=== PATIENT | male | born 1950 | race Caucasian/White ===

== ENCOUNTER 2023-05-04 16:46 | Emergency (ER) | payer OTHER, SELFPAY ==
--- NOTE | ~2023-05-04 | XR_ITS ---
EXAM: XR shoulder LT min 2V DATE: 05/04/2023 18:00 HISTORY: pain posteriorly/ decreased ROM after a fall last night . COMPARISON: None available. FINDINGS: Normal mineralization. No fracture or dislocation. No lytic or blastic lesion. Moderate po lyarticular osteoarthritic arthritis. No erosion or periosteal change. Soft tissues within normal gamble its. IMPRESSION: No acute osseous finding in the left shoulder. Reviewed, dictated and finalized at location K.
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
[2023-05-04 16:46] VITALS: BP 169/95; PULSE 83; RESP 18; TEMP 36.8; O2SAT 97
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
[2023-05-04] MEDS: CYCLOBENZAPRINE HCL 10 MG TABLET PO (17:07)
[2023-05-04] MEDS: HYDROcodone/acetaminophen (*CRX) 5-325 MG TABLET 1 TAB PO (17:07)
[2023-05-04 17:36] VITALS: BP 140/90; PULSE 88; RESP 18; O2SAT 98
[2023-05-04 18:38] VITALS: BP 137/90; PULSE 77; RESP 17; TEMP 36.6; O2SAT 97
== END 2023-05-04 18:39 | disposition home or self-care (01) ==
PROVIDERS: Emergency Provider Family Medicine
DX: S46.002A Unspecified injury of muscle(s) and tendon(s) of the rotator cuff of left shoulder, initial encounter (principal); M48.061 Spinal stenosis, lumbar region without neurogenic claudication; E78.5 Hyperlipidemia, unspecified; F03.90 Unspecified dementia, unspecified severity, without behavioral disturbance, psychotic disturbance, mood disturbance, and anxiety; W07.XXXA Fall from chair, initial encounter
CPT/HCPCS: 72131; 73030; 99284; A9270

== ENCOUNTER 2023-06-02 14:31 | Outpatient (CLI) | payer SELFPAY ==
[2023-06-02 14:51] LABS: Basophils Absolute Auto 0.04 K/mm3 (0.00-0.10); Basophils Percent Auto 0.5 % (0.0-1.0); Eosinophils Absolute Auto 0.17 K/mm3 (0.02-0.50); Eosinophils Percent Auto 2.2 % (1.0-6.0); Hematocrit 44.9 % (37.0-46.0); Hemoglobin 14.3 g/dL (12.4-15.3); Immature Granulocyte Absolute 0.02 K/mm3 (0.00-0.00); Immature Granulocyte Percent A 0.3 % (0.0-0.0); Lymphocytes Absolute Auto 2.29 K/mm3 (1.10-4.50); Lymphocytes Percent Auto 29.6 % (18.0-42.0); Mean Corpuscular HGB Conc 31.8 g/dL (32.0-36.0); Mean Corpuscular Hemoglobin 29.5 pg (27.0-31.0); Mean Corpuscular Volume 92.6 fL (78.0-102.0); Mean Platelet Volume 9.7 fl (8.7-11.0); Monocytes Absolute Auto 0.46 K/mm3 (0.10-0.90); Neutrophils Absolute Auto 4.8 K/mm3 (1.7-7.2); Neutrophils Percent Auto 61.4 % (50.0-70.0); Platelet Count Result 248 K/mm3 (150-420); Red Blood Count 4.85 M/mm3 (4.70-6.10); Red Cell Distribution Width 13.8 % (11.6-14.4); White Blood Count 7.7 K/mm3 (4.8-10.8)
[2023-06-02 15:37] LABS: Alanine Aminotransferase 42 U/L (16-63); Albumin Level 3.2 g/dL (3.4-5.0); Alkaline Phosphatase 80 U/L (46-116); Anion Gap 7 mmol/L (8-16); Aspartate Amino Transferase 21 U/L (15-37); Bilirubin,Total 0.5 mg/dL (0.00-1.00); Blood Urea Nitrogen 15 mg/dL (7-18); Calcium 8.7 mg/dL (8.5-10.1); Carbon Dioxide 31 mmol/L (21-32); Chloride 105 mmol/L (98-108); Cholesterol 190 mg/dL (0-200); Estimated Glomerular Filt Rate > 60; Glucose 122 mg/dL (70-99); HDL Direct 39 mg/dL (40-60); LDL Cholesterol Calculated 77 mg/dL (<130); Osmolality Calculated 297 mOsm/kg (285-295); Potassium 4.1 mmol/L (3.5-5.1); Prostate Specific Antigen 0.4 ng/mL (< OR = 4.0); Sodium 143 mmol/L (136-145); Total Protein 7.4 g/dL (6.4-8.2); Triglycerides 372 mg/dL (0-150)
== END 2023-06-02 14:32 | disposition home or self-care (01) ==
LOC: CHSLAB 14:33
PROVIDERS: PCP Family Medicine; Visit Provider Family Medicine
DX: Z00.00 Encounter for general adult medical examination without abnormal findings (principal); R35.1 Nocturia; N40.0 Benign prostatic hyperplasia without lower urinary tract symptoms
CPT/HCPCS: 36415; 80053; 80061; 84153; 85025; G0103

== ENCOUNTER 2025-04-25 16:58 | Emergency (ER) | payer OTHER, SELFPAY ==
--- NOTE | ~2025-04-25 | XR_ITS ---
EXAMINATION: XR ankle RT min 3V, 04/25/2025 17:45 CDT HISTORY: fall COMPARISON: No comparisons available. Findings: Fixation of the distal fibula, the hardware is intact, no acute fracture. No significant degenerative changes. Soft tissues unremarkable. Impression: No acute fracture or malalignment. Reviewed, dictated and finalized at location P. Impression: No acute fracture or malalignment.
--- NOTE | ~2025-04-25 | XR_ITS ---
XR foot RT 2V INDICATION: fall . COMPARISON: None. FINDINGS: Frontal, lateral and oblique views of the right foot were obtained. There is no acute fracture or dislocation. IMPRESSION: Radiographic examination of the right foot demonstrates no acute fracture or dislocation. Reviewed, dictated and finalized at location S. IMPRESSION: Radiographic examination of the right foot demonstrates no acute fracture or di slocation.
--- NOTE | ~2025-04-25 | XR_ITS ---
EXAMINATION: XR tibia fibula RT 2V, 04/25/2025 17:45 CDT HISTORY: fall COMPARISON: No comparisons available. Findings: Postsurgical changes with fixation of the distal fibula, no fracture is identified. There is fixation of the visualized distal femur. No significant degenerative changes. Soft tissues unremarkable. Impression: No acute fracture or malalignment. Reviewed, dictated and finalized at location P. Impression: No acute fracture or malalignment.
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
--- OUTSIDE RECORDS SUMMARY | 2025-04-25 17:00 | XMS_ITS | Clinical Summary ---
Author Organization [facility] Address [address] [place] [address] Care Team Providers Care Rail Layer Name Role Phone None, Provider MD Primary Care Provider Unavaila ble Allergies Active Allergy Reactions Criticality Noted Date Comments Topiramate Cough,Unknown 01/01/2018 Medication makes food and water taste horrible. Medications gabapentin 300 MG capsule Take 300 mg by mouth 2 (two) times a day. Active buPROPion 75 MG tablet Take 75 mg by mouth daily. Active sertraline 100 MG tablet Take 100 mg by mouth daily. Active sertraline 25 MG tablet Take 50 mg by mouth daily. Active simvastatin 80 MG tablet Take 40 mg by mouth. Active finasteride 1 MG tablet Take 5 mg by mouth daily. Active tamsulosin (FLOMAX) 0.4 MG Cap Take 1 capsule by mouth. Active donepezil 10 MG Tab Take 10 mg by mouth. Active omeprazole 20 MG capsule Take 40 mg by mouth. Active albuterol sulfate HFA 108 (90 Base) MCG/ACT inhaler Inhale 2 puffs into the lungs every 6 (six) hours as needed for Wheezing or Shortness of breath. 1 Inhaler 0 Active azithromycin 500 MG tablet Take 1 tablet (500 mg total) by mouth daily. 4 tablet 0 Active Active Problems Problem Noted Date Diagnosed Date Dementia 08/08/2017 Hypertension 08/08/2017 Resolved Problems Problem Noted Date Diagnosed Date Resolved Date Pneumonia 05/01/2020 05/04/2020 Social History Tobacco Use Types Packs/Day Years Used Date Smoking Tobacco: Never Smokeless Tobacco: Never Alcohol Use Standard Drinks/Week Comments Not Currently 0 (1 standard drink = 0.6 oz pur e alcohol) Sex and Gender Information Value Date Recorded Sex Assigned at Not on file Legal Sex Male 10:04 PM [employer]ER [employer] Gender Identity Not on file Sexual Orientation Not on file Last Filed Vital Signs Vital Sign Reading Time Taken Comments Blood Pressure 124/80 08/25/2021 7:30 PM [employer] TROLL LINE Pulse 74 08/25/2021 7:30 PM [employer] LINE Temperature 36.6 C (97.8 F) 08/25/2021 4:49 PM [employer] LINE Respiratory Rate 18 08/25/2021 4:49 PM [employer] LINE Oxygen Saturation 95% 08/25/2021 4:49 PM [employer] LINE Inhaled Oxygen Concentration - - Weight 127 kg (280 lb) 08/25/2021 4:49 PM FISHER TROLL LINE Height 180.3 cm (5' 11) 08/25/2021 4:49 PM [employer] LINE Body Mass Index 39.05 08/25/2021 4:49 PM [employer] Plan of Treatment Health Maintenance Due Date Last Done Comments Colorectal Cancer Screening Colonoscopy (10 Years) 1950 Hepatitis C 1968 Pneumococcal Vaccine: 50+ Ye ars (1 of 1 - PCV) 2000 Zoster Vaccines (1 of 2) 2000 COVID-19 Vaccine ( - 2023-2 5 season) 2025 Influenza Adult (#1) 2025 RSV Immunization or 60+ Years (1 - 1-dose 75+ series) 2025 DTaP, Tdap and Td Vaccines ( 2 - Td or Tdap) 03/18/2028 03/18/2018 Meningococcal B Vaccine Aged Out No l onger eligible based on patient's age to complete this topic Meningococcal Vaccine Aged Out No radha evita eligible based on patient's age to complete this topic RSV Immunizations Under 20 Months Aged Out No longer eligible based on patient's age to complete this topic Insurance [facility] Advance Directives * Full Code (Latest Code Status on File) Date Activated Date Inactivated Comments 05/01/2020 10:48 PM 05/04/2020 4:36 PM Care Teams Rail Layer Relationship Specialty Start Date End Date None, Provider, PCP - General 05/01/20
[2025-04-25 17:02] VITALS: BP 140/88; PULSE 66; RESP 18; TEMP 36.8; O2SAT 97
--- NOTE | 2025-04-25 17:03 | ED.LOWEXIN ---
HPI - Extremity Injury (Lower) General Chief Complaint: Extremity Injury, Lower Stated Complaint: right foot injury Time Seen by Provider: 04/25/25 17:00 Source: patient and family Mode of arrival: ambulatory Limitations: no limitations History of Present Illness HPI Narrative: Patient is a 74-year-old male with a right ankle and foot and lower extremity pain after twisting his ankle prior to arrival. The patient rolled his right ankle and hurt his foot ankle and lower extremity. No other injuries. No head or neck injuries. MD complaint: leg injury (Right), ankle injury (Right) and foot injury (Right) Onset (ago): minute(s) (45) Type of Injury: inversion Place: street/outdoors Severity: moderate Severity scale (1-10): 6 Relieving factors: immobilization Exacerbating factors: weight bearing, movement and palpation Context: fall and walking Associated symptoms: swelling, able to partially bear weight and other (Ecchymosis) Other symptoms: none Treatments prior to arrival: other (None) Related Data Allergies Allergy/AdvReac Type Severity Reaction Status Date / Time No Known Allergies Allergy Mild Verified 04/25/25 17:11 Review of Systems Review of Systems: All systems reviewed & are unremarkable except as noted in HPI and below Constitutional: Constitutional: Reports no additional constitutional complaints Eyes: Eyes: Reports no additional eye complaints ENT: Reports system reviewed and no additional complaints, except as documented Cardiovascular: Cardiovascular: Reports no additional cardiovascular complaints Respiratory: Respiratory: Reports no additional respiratory complaints Gastrointestinal: Gastrointestinal: Reports no additional gastrointestinal complaints Genitourinary: Genitourinary: Reports no additional male genitourinary complaints Musculoskeletal: Musculoskeletal: Reports no additional musculoskeletal complaints Integumentary/Breasts: Skin/Breast: Reports system reviewed and no additional complaints, except as docu Neurologic: Reports system reviewed and no additional complaints, except as documented Psychiatric: Psychiatric: Reports no additional psychiatric complaints Endocrine: Endocrine: Reports no additional endocrine complaints Hematologic/Lymphatic: Hematologic/Lymphatic: Reports no additional hematologic/lymphatic complaints Allergic/Immunologic: Allergic/Immunologic: Reports no additional allergic/immunologic complaints [facility] Past Medical History Medical History Enlarged prostate Scalp injury Femur fracture Dementia High cholesterol Acid reflux Surgical History Surgical History History of ankle surgery History of hernia surgery Family History Family History Mother Diabetes mellitus Father Hypertension Enlarged prostate Social History Social History Smoking status: Never smoker Alcohol intake: current Drinks per week: 1 Substance use type: marijuana Do You Feel Safe in your Home?: Yes Lack of Transportation: No Lack of Food: Sometimes True Current Housing: I Have Housing Concerned About Future Housing: No Difficulty Paying Gas/Electric Bills: No Difficulty Paying for Meds: No Currently Unemployed: No Education: High School Diploma/GED Difficulty w/ Childcare or Family Care: No Exam Const: General: healthy appearing Nutritional Appearance: well nourished Orientation/consciousness: patient oriented x3 HENMT: Head: normal to inspection Ears: external ears normal Face/Nose/Sinus: Normal external nose present Eyes: Conjunctivae: conjunctivae normal Pupils: Equal, round and reactive pupils present EOM: EOMs intact bilaterally Neck: Neck: normal visual inspection Chest: Chest palpation & inspection: normal inspection of the chest Resp: Effort & Inspection: normal respiratory effort and not labored Auscultation: clear to auscultation bilaterally and no crackles Cardio: Rate: regular rate Rhythm: regular rhythm Heart sounds: no murmurs GI: Inspection: non-distended GI Palp: Yes Soft to palpation and No Tenderness to palpation present (GI) Auscultation: normal bowel sounds : General: Yes bladder normal to palpation Back/Spine/Pelvis: Back: no CVA tenderness Skin: General skin exam: normal color Rashes: no rashes Wounds: no wounds Neuro: General: patient oriented x3, moves all extremities and no meningeal signs Extrem: General: abnormal to inspection, no clubbing, cyanosis or edema and no pedal edema Other: Right foot is swollen with ecchymosis and the right ankle is also swollen with ecchymosis and the low right lower tib fib/leg appears normal at this time; tenderness throughout below the knee of the lower extremity; neurovascularly intact Psych: Mental Status: mental status grossly normal Affect: normal affect Attitude: cooperative Course Vital Signs Vital signs: Vital Signs Temperature 36.8 C 04/25/25 17:02 Pulse Rate 66 04/25/25 17:02 Respiratory Rate 18 10/13/25 17:02 Blood Pressure 140/88 04/25/25 17:02 Pulse Oximetry 97 04/25/25 17:02 Oxygen Delivery Room Air 04/25/25 17:02 Temperature 36.2 C L 04/25/25 19:10 Pulse Rate 57 L 04/25/25 19:10 Respiratory Rate 20 04/25/25 19:10 Blood Pressure 117/59 L 04/25/25 19:10 Pulse Oximetry 100 04/25/25 19:10 Oxygen Delivery Room Air 04/25/25 19:10 MDM - Extremity Injury (Lower) MDM Narrative Medical decision making narrative: Patient is a 74-year-old male with a right lower extremity injury after rolling his ankle prior to arrival. X-rays. Pain control. Imaging Data Attestation: I personally reviewed and interpreted this imaging study as follows: Radiologist's impression: X-ray ankle right is negative for acute process X-ray foot right is negative for acute process X-ray tib-fib right is negative for acute process Discharge Plan Discharge Clinical Impression: Sprain of foot Qualifiers: Encounter type: initial encounter Laterality: right Qualified Code(s): S93.601A - Unspecified sprain of right foot, initial encounter Sprain of ankle Qualifiers: Encounter type: initial encounter Involved ligament of ankle: other ligament Laterality: right Qualified Code(s): S93.491A - Sprain of other ligament of right ankle, initial encounter Patient Disposition: Home Condition: Stable Instructions: Ankle Sprain (ED), Foot Sprain (ED) Patient Language: Portuguese Prescriptions: New hydrocodone-acetaminophen 5-325 mg tablet 1 tablet PO Q8H PRN (Reason: pain) Qty: 14 0RF Rx Instructions: 1-2 tabs per dose No Action cyclobenzaprine 5 mg tablet 5 mg PO TID PRN (Reason: muscle spasm) Qty: 20 0RF tamsulosin 0.4 mg capsule 0.4 mg PO DAILY Qty: 90 0RF oxycodone 5 mg tablet 5 mg PO QHS PRN (Reason: pain) Qty: 30 0RF finasteride 5 mg tablet 5 mg PO DAILY Qty: 90 0RF Follow-up/Referrals: Lizy Muñoz MD [Primary Care Provider, Internal Medicine] Time of Disposition: 18:56
[2025-04-25] MEDS: HYDROcodone/acetaminophen (*CRX) 10-325 MG TABLET 1 TAB PO (17:34)
[2025-04-25 19:10] VITALS: BP 117/59; PULSE 57; RESP 20; TEMP 36.2; O2SAT 100
== END 2025-04-25 19:10 | disposition home or self-care (01) ==
PROVIDERS: Emergency Provider Emergency Medicine; PCP Internal Medicine
DX: S93.601A Unspecified sprain of right foot, initial encounter (principal); S93.491A Sprain of other ligament of right ankle, initial encounter; X50.0XXA Overexertion from strenuous movement or load, initial encounter
CPT/HCPCS: 73590; 73610; 73620; 99284; A9270

== ENCOUNTER 2025-05-10 14:00 | Observation (INO) | payer OTHER, SELFPAY ==
[2025-05-10] VITALS (22 sets, daily range): BP systolic 109–138; BP diastolic 62–86; PULSE 57–66; RESP 16–19; TEMP 36.1–36.7; O2SAT 94–99; BMI 33.8
--- NOTE | ~2025-05-10 | US_ITS ---
RIGHT LOWER EXTREMITY VENOUS DUPLEX Clinical History: Right calf muscle pain COMPARISON: None TECHNIQUE: Grayscale, color, duplex/spectral Doppler sonography right leg FINDINGS: Right leg common femoral, femoral, popliteal, and calf veins compressible and color Doppler patent. Normal augmentation with distal compression. No internal echoes. IMPRESSION: 1. No right leg DVT. Reviewed, dictated and finalized at location R. IMPRESSION: 1. No right leg DVT.
--- NOTE | 2025-05-10 14:15 | PC.NURSE ---
Laboratory at pt bedside.
--- NOTE | 2025-05-10 14:15 | ED.GENADULT ---
HPI - General Adult General Chief complaint: Wound/Laceration Stated complaint: right foot wound Time Seen by Provider: 05/10/25 14:07 Source: patient Mode of arrival: ambulatory Limitations: no limitations History of Present Illness HPI narrative: 75 years old white male came to the ED by private car complaining of right foot pain, swelling and redness started few days ago. Patient reports twisting her right foot 2 weeks ago, x-ray showed no osseous abnormality, few days later developed blister like lesion at the dorsal side of the foot, busted, redness and swelling and pain followed. Patient denies any fever, chills, nausea, vomiting. Questionable right calf muscle pain. Patient is not diabetic, denied smoking or drinking or using drugs or trouble breathing or chest pain Related Data Home Medications ?Medication ?Instructions ?Recorded ?Confirmed ?Last Taken ?Type albuterol sulfate 90 mcg/actuation 1 puff inhalation Q4H PRN 05/10/25 05/10/25 05/10/25 08:26 History aerosol inhaler (Ventolin HFA) shortness of breath or wheezing amlodipine 10 mg tablet 10 mg PO DAILY 05/10/25 05/10/25 05/10/25 08:00 History apixaban 5 mg tablet 5 mg PO BID 05/10/25 05/10/25 05/10/25 08:27 History atorvastatin 20 mg tablet (Lipitor) 20 mg PO DAILY 05/10/25 05/10/25 05/09/25 20:27 History duloxetine 60 mg capsule,delayed 60 mg PO DAILY 05/10/25 05/10/25 05/10/25 08:30 History release (Cymbalta) ferrous sulfate 325 mg (65 mg 325 mg PO DAILY 05/10/25 05/10/25 05/09/25 08:00 History iron) tablet melatonin 3 mg capsule 3 mg PO QHS 05/10/25 05/10/25 05/09/25 20:00 History metoprolol succinate 25 mg 25 mg PO BID 05/10/25 05/10/25 05/10/25 05:29 History tablet,extended release 24 hr sertraline 50 mg tablet 50 mg PO DAILY 05/10/25 05/10/25 05/10/25 08:29 History Allergies Allergy/AdvReac Type Severity Reaction Status Date / Time No Known Allergies Allergy Mild Verified 05/10/25 17:50 Review of Systems Review of Systems: All systems reviewed & are unremarkable except as noted in HPI and below PMFSH Past Medical History Medical History Enlarged prostate Scalp injury Femur fracture Dementia High cholesterol Acid reflux Surgical History Surgical History History of ankle surgery History of hernia surgery Family History Family History Mother Diabetes mellitus Father Hypertension Enlarged prostate Social History Social History Smoking status: Never smoker Second hand tobacco smoke exposure: No Alcohol intake: never Drinks per week: 1 Substance use type: does not use Do You Feel Safe in your Home?: Yes Lack of Transportation: No Lack of Food: Never True Current Housing: I Have Housing Concerned About Future Housing: No Difficulty Paying Gas/Electric Bills: No Difficulty Paying for Meds: No Currently Unemployed: No Education: High School Diploma/GED Difficulty w/ Childcare or Family Care: No Spiritual care concerns: No Exam Narrative: General appearance: Well-developed, well-nourished Skin: Normal color Head: Normocephalic, nontraumatic Eyes: Clear conjunctiva ENT: Oropharynx normal, ears normal, nose normal Neck: Supple, nontender Chest and respiratory: Airway patent, no respiratory distress, no accessory muscle use Heart: Regular rate/rhythm Abdomen: Soft, nontender, no organomegaly, quiet bowel sounds Vascular: Normal peripheral pulses, normal capillary refill. Musculoskeletal: Right foot exam showed superficial ulceration, surrounded by diffuse erythema, tenderness and warmth dorsally, no discharge Neurologic: Alert and oriented ?3, COMPLIANCE NURSE is normal as tested, no gross motor deficit Course Vital Signs Vital signs: Vital Signs Temperature 36.7 C 05/10/25 14:00 Pulse Rate 64 05/10/25 14:00 Respiratory Rate 16 05/10/25 14:00 Blood Pressure 127/79 05/10/25 14:00 Pulse Oximetry 97 05/10/25 14:00 Oxygen Delivery Room Air 05/10/25 14:00 Temperature 36.7 C 05/10/25 14:00 Pulse Rate 64 05/10/25 14:00 Respiratory Rate 16 05/10/25 14:00 Blood Pressure 127/79 05/10/25 14:00 Pulse Oximetry 97 05/10/25 14:00 Oxygen Delivery Room Air 05/10/25 14:00 Medical Decision Making [facility] Narrative Medical decision making narrative: Vital signs insignificant Physical examination showing infected wound at the right foot dorsally with cellulitis Differential diagnosis include cellulitis, deep vein thrombosis less likely, Blood workup today include CBC, CMP, blood culture, CRP, lactic acid showed creatinine 1.5 compared to 0.9 2022, C-reactive protein 2.8 Otherwise within normal limit Venous Doppler right lower extremity showed no acute abnormalities Patient started on vancomycin IV. Admit to hospitalist. Differential Diagnosis Differential Diagnosis: As above Vital Signs Vital Signs: Vital Signs Temperature 36.7 C 05/10/25 14:00 Pulse Rate 64 05/10/25 14:00 Respiratory Rate 16 05/10/25 14:00 Blood Pressure 127/79 05/10/25 14:00 Pulse Oximetry 97 05/10/25 14:00 Oxygen Delivery Room Air 05/10/25 14:00 Temperature 36.7 C 05/10/25 14:00 Pulse Rate 64 05/10/25 14:00 Respiratory Rate 16 05/10/25 14:00 Blood Pressure 127/79 05/10/25 14:00 Pulse Oximetry 97 05/10/25 14:00 Oxygen Delivery Room Air 05/10/25 14:00 Lab Data 05/10/25 14:33 05/10/25 14:33 Labs: Lab Results 05/10/25 Range/Units 14:33 WBC 6.4 (4.8-10.8) K/mm3 RBC 4.27 L (4.70-6.10) M/mm3 Hgb 12.1 L (12.4-15.3) g/dL Hct 39.4 (37.0-46.0) % MCV 92.3 (78.0-102.0) fL MCH 28.3 (27.0-31.0) pg MCHC 30.7 L (32-36) g/dL RDW 14.3 (11.6-14.4) % Plt Count 220 (150-420) K/mm3 MPV 9.0 (8.7-11.0) fl Immature Gran % (Auto) 0.5 H (0.0-0.0) % Neut % (Auto) 62.8 (50.0-70.0) % Lymph % (Auto) 24.2 (18.0-42.0) % [place] % (Auto) 8.5 (2.0-11.0) % Eos % (Auto) 3.4 (1.0-6.0) % Baso % (Auto) 0.6 (0.0-1.0) % Lymph # (Auto) 1.56 (1.10-4.50) K/mm3 [place] # (Auto) 0.55 (0.10-0.90) K/mm3 Eos # (Auto) 0.22 (0.02-0.50) K/mm3 Baso # (Auto) 0.04 (0.00-0.10) K/mm3 Abs Immat Gran (auto) 0.03 H (0.00-0.00) K/mm3 Absolute Neuts (auto) 4.04 (1.70-7.20) K/mm3 Absolute Nucleated RBC 0.00 (0.00-0.00) K/mm3 Nucleated RBC % 0.0 (0-0.0) % PT 11.4 (9.50-12.1) Seconds INR 1.0 APTT 28.4 (23.9-30.70) Sec Sodium 143 (137-145) mmol/L Potassium 4.3 (3.4-5.0) mmol/L Chloride 106 (98-107) mmol/L Carbon Dioxide 28 (22-30) mmol/L Anion Gap 9 (4-12) mmol/L BUN 19 (9-20) mg/dL Creatinine 1.58 H (0.7-1.3) mg/dL Estim Creat Clear Calc 46 ml/min Estimated GFR 43 L (59 - ) Glucose 140 H (65-110) mg/dL Calculated Osmolality 300 H (285-295) mOsm/kg Lactic Acid 1.4 (0.4-2.0) mmol/L Calcium 9.1 (8.4-10.2) mg/dL Total Bilirubin 0.7 (0.2-1.3) mg/dL AST 21 (17-59) U/L ALT 17 (6-50) U/L Alkaline Phosphatase 86 (38-126) U/L C-Reactive Protein 2.8 H (<1.0) mg/dL Total Protein 8.7 H (6.3-8.2) g/dL Albumin 4.2 (3.5-5.1) g/dL Imaging Data Radiologist's impression: Impressions Venous Doppler Study 05/10/25 14:47 IMPRESSION: 1. No right leg DVT. Critical Care Time Critical Care Time Critical Care Time: No Discharge Plan Discharge Clinical Impression: Cellulitis, FANNY (acute kidney injury) Patient Disposition: Still a Patient Condition: Stable Additional Instructions: Admit to hospitalist Patient Language: Moldovan Prescriptions: No Action hydrocodone-acetaminophen 5-325 mg tablet tamsulosin 0.4 mg capsule 0.4 mg PO DAILY Qty: 90 0RF atorvastatin [Lipitor] 20 mg tablet 20 mg PO DAILY amlodipine 10 mg tablet 10 mg PO DAILY ferrous sulfate 325 mg (65 mg iron) tablet 325 mg PO DAILY metoprolol succinate 25 mg tablet extended release 24 hr 25 mg PO BID albuterol sulfate [Ventolin HFA] 90 mcg/actuation HFA aerosol inhaler 1 puff inhalation Q4H PRN (Reason: shortness of breath or wheezing) sertraline 50 mg tablet 50 mg PO DAILY apixaban 5 mg tablet 5 mg PO BID naloxone [Narcan] 4 mg/actuation spray,non-aerosol 4 mg intranasal Q3M PRN (Reason: opioid overdose) Rx Instructions: spray 1 dose into ONE nostril; alternate nostrils w each dose until help arrives melatonin 3 mg capsule 3 mg PO QHS finasteride 5 mg tablet 5 mg PO DAILY Qty: 90 0RF Follow-up/Referrals: Vj Miller DO [Primary Care Provider, [facility]]
[2025-05-10 14:38] LABS: Hematocrit 39.4 % (37.0-46.0); Hemoglobin 12.1 g/dL (12.4-15.3); Immature Granulocyte Percent A 0.5 % (0.0-0.0); Lymphocytes Absolute Auto 1.56 K/mm3 (1.10-4.50); Mean Corpuscular HGB Conc 30.7 g/dL (32-36); Mean Corpuscular Hemoglobin 28.3 pg (27.0-31.0); Mean Corpuscular Volume 92.3 fL (78.0-102.0); Nucleated Red Blood Cells Absolute Auto 0.00 K/mm3 (0.00-0.00); Nucleated Red Blood Cells Perc 0.0 % (0-0.0); Platelet Count Result 220 K/mm3 (150-420); Red Blood Count 4.27 M/mm3 (4.70-6.10); White Blood Count 6.4 K/mm3 (4.8-10.8)
[2025-05-10 14:54] LABS: INR 1.0; Partial Thromboplastin Time 28.4 Sec (23.9-30.70); Prothrombin Time 11.4 Seconds (9.50-12.1)
[2025-05-10 14:56] LABS: Alanine Aminotransferase 17 U/L (6-50); Albumin Level 4.2 g/dL (3.5-5.1); Alkaline Phosphatase 86 U/L (38-126); Anion Gap 9 mmol/L (4-12); Aspartate Amino Transferase 21 U/L (17-59); Bilirubin,Total 0.7 mg/dL (0.2-1.3); Blood Urea Nitrogen 19 mg/dL (9-20); CRP 2.8 mg/dL (<1.0); Calcium 9.1 mg/dL (8.4-10.2); Carbon Dioxide 28 mmol/L (22-30); Chloride 106 mmol/L (98-107); Estimated CRCL calculation 46 ml/min; Estimated Glomerular Filt Rate 43; Glucose 140 mg/dL (65-110); Osmolality Calculated 300 mOsm/kg (285-295); Potassium 4.3 mmol/L (3.4-5.0); Sodium 143 mmol/L (137-145); Total Protein 8.7 g/dL (6.3-8.2)
[2025-05-10] MEDS: VANCOMYCIN 1,500 MG/NS 500 ML 1,500 MG/500 ML BAG 333.33 MG IVPB (15:08)
--- OUTSIDE RECORDS SUMMARY | 2025-05-10 16:21 | XMS_ITS | Clinical Summary ---
Author Organization [facility] Address [address] [place] [address] Care Team Providers Care Computer Systems Software Engineer Name Role Phone Joseluis Chin Primary Care Provider [phone] Allergies Active Allergy Reactions Criticality Noted Date [...] Tobacco Cessation:Counseling Given: Not Answered [facility] Utilities Answer Date Recorded In the past 12 months has e [employer], [employer], [employer], or water [employer] threatened to shut off services in your home? Patient unable to answer 01/19/2024 Social Connection and Isolation Panel Answer Date Recorded In a typical week, how many times do you talk on the phone with family, friends, or neighbors? Patient unable to answer 01/19/2024 How often do you get togethe r with friends or relatives? Patient unable to answer 01/19/2024 How often do you attend chur or worship services? Patient unable to answer 01/19/2024 Do you belong to any clubs o r organizations such as jewish groups, unions, fraternal or athletic groups, or [...] and heating? Patient unable to answer 01/19/2024 [facility] - Occupational [...] any time in the past 12 m [facility], were you homeless or living in a long-term (including now)? Patient unable to answer 01/19/2024 [...] have received informed consent. Yes Care Teams Computer Systems Software Engineer Relationship Specialty Start Date End Date Joseluis Chin [address] [place] [id number] PCP - General Internal Medicine 01/19/24
--- OUTSIDE RECORDS SUMMARY | 2025-05-10 16:21 | XMS_ITS | Clinical Summary ---
Author Organization [facility] Address [address] [place] [address] Care Team Providers Care Thermal Molder Name Role Phone None, Provider MD Primary [...] on file Legal Sex Male 10:04 PM FORMULA CLERK Gender Identity Not on file Sexual Orientation Not on file Last Filed Vital Signs Vital Sign Reading Time Taken Comments Blood Pressure 124/80 08/25/2021 7:30 PM FORMULA CLERK Pulse 74 08/25/2021 7:30 PM FORMULA CLERK Temperature 36.6 C (97.8 F) 08/25/2021 4:49 PM FORMULA CLERK Respiratory Rate 18 08/25/2021 4:49 PM FORMULA CLERK Oxygen Saturation 95% 08/25/2021 4:49 PM FORMULA CLERK Inhaled Oxygen Concentration - - Weight 127 kg (280 lb) 08/25/2021 4:49 PM FORMULA CLERK Height 180.3 cm (5' 11) 08/25/2021 4:49 PM FORMULA CLERK Body Mass Index 39.05 08/25/2021 4:49 PM FORMULA CLERK Plan of Treatment Health Maintenance Due Date Last Done Comments Colorectal Cancer Screening Colonoscopy (10 Years) 1950 Hepatitis C 1968 Pneumococcal Vaccine: 50+ Ye ars (1 of 1 - PCV) 2000 Zoster Vaccines (1 of 2) 2000 COVID-19 Vaccine ( - 2024-2 6 season) 2025 Influenza Adult (#1) 2025 RSV Immunization or 60+ Years (1 - 1-dose 75+ series) 2025 DTaP, Tdap and Td Vaccines ( 2 - Td or Tdap) 03/18/2028 03/18/2018 Hepatitis A Vaccines Aged Out No long er eligible based on patient's age to complete this topic Meningococcal B Vaccine Aged Out No l onger eligible based on patient's age to complete this topic Meningococcal Vaccine Aged Out No radha evita eligible based on patient's age to complete this topic RSV Immunizations Under 20 Months Aged Out No longer eligible based on patient's age to complete this topic Insurance [facility] OFFICE OF [facility] Advance Directives * Full Code (Latest Code Status on File) Date Activated Date Inactivated Comments 05/01/2020 10:48 PM 05/04/2020 4:36 PM Care Teams Thermal Molder Relationship Specialty Start Date End Date None, Provider, PCP - General 05/01/20
--- OUTSIDE RECORDS SUMMARY | 2025-05-10 16:22 | XMS_ITS | Clinical Summary ---
Author Organization [facility] Address [address] [place] [address] Care Team Providers Care Cloud Solutions Architect Name Role Phone Giuseppe PHILLIPS MD, Joseluis Carney Primary Care Prov ider Source Comments [facility],non-owned Affiliates and Associated Physician Practices is amultiple site organization consisting of ambulatory clinics and hospital sitesin [place], [place], [place] and [place]. This disclosure is being madepursuant to the Care Everywhere program and may not contain all information available regarding this patient. Last updated 18.[facility] Allergies Active Allergy Reactions Criticality Noted Date [...] and heating? Not hard at all 12/29/2023 [facility] [place] [facility] - Occupational Stress [...] place to sleep or slept in a prison (including now)? No 12/29/2023 Sex and Gender Information Value Date Recorded Sex Assigned at Not on file Legal Sex Male 1:41 PM CDT Gender Identity Not on file Sexual Orientation Not on file Last Filed Vital Signs Vital Sign Reading Time Taken Comments Blood Pressure 126/80 08/16/2024 2:08 PM INPATIENT PHARMACIST Pulse 61 08/16/2024 2:08 PM INPATIENT PHARMACIST Temperature 36.8 C (98.3 F) 08/16/2024 2:08 PM INPATIENT PHARMACIST Respiratory Rate 16 01/16/2024 9:00 PM CDT Oxygen Saturation 99% 08/16/2024 2:08 PM INPATIENT PHARMACIST Inhaled Oxygen Concentration 40% 01/16/2024 8 :28 PM CDT Weight 116 kg (255 lb 12.8 oz) 08/16/2024 2:08 P M INPATIENT PHARMACIST Height 180.3 cm (5' 11) 08/16/2024 2:08 PM INPATIENT PHARMACIST Body Mass Index 35.68 08/16/2024 2:08 PM INPATIENT PHARMACIST Plan of Treatment Health Maintenance Due Date [...] this topic Medical Devices Implanted Type Area Abstract Maker Device Identifier Shelf Expiration Date Model / Serial / Lot Nail 11mm 40cm Im Fem Tmx Versanail Implanted:Qty: 1 on 03/19/2018 by Ovidio Garcia MD at [facility] Right: Femur [employer] 09/10/2024 [id number] / / [id number] Plate Cntr 86mm Ss 2.7/3.5mm Scr 4 Hl Implanted:Qty: 1 on 03/19/2018 by Ovidio Garcia MD at [facility] Left: Ankle [employer]ynthes [employer] [id number] / / 4.5mm Solid Cortical Screw, Full Thread - 42mm Length Implanted:Qty: 1 on 03/19/2018 by Ovidio Garcia MD at [facility] Right: Fem[employer] [id number] / / Description:4.5MM SOLID ASIM ICAL SCREW, FULL THREAD - 42MM LENGTH Screw 6.5mm 65mm Ft Fem Asim Prox Sld Implanted:Qty: 1 on 03/19/2018 by Ovidio Garcia MD at [facility] Right: Femur [employer] [id number] / / Cap End Unv Tib Im Nail Ti Strl Implanted:Qty: 1 on 03/19/2018 by Ovidio Garcia MD at [facility] Right: Femur [employer] [id number]/12/[id number] / / [id number] Screw 2.7mm 2.1mm 14mm T8 Slf-Tap Lck Implanted:Qty: 2 on 03/19/2018 by Ovidio Garcia MD at [facility] Left: Ankle [employer] [id number] / / Screw 2.7mm 2.1mm 16mm T8 Slf-Tap Lck Implanted:Qty: 2 on 03/19/2018 by Ovidio Garcia MD at [facility] Left: Ankle [employer] 202.216 / / Screw 3.5mm 6mm 14mm Ft Asim Slf-Tap Sm Implanted:Qty: 1 on 03/19/2018 by Ovidio Garcia MD at [facility] Left: Ankle [employer] 204.814 / / Screw 3.5mm 6mm 16mm Ft Asim Slf-Tap Sm Implanted:Qty: 1 on 03/19/2018 by Ovidio Garcia MD at [facility] Left: Ankle Synthes [facility] 204.816 / / Screw 3.5mm 6mm 18mm Ft Asim Slf-Tap Sm Implanted:Qty: 1 on 03/19/2018 by Ovidio Garcia MD at [facility] Left: Ankle Synthes [facility] 204.818 / / Procedures Procedure Name Priority Date/Time Associated Diagnosis Comments BASIC METABOLIC PANEL (CALCIUM TOTAL) Timed 01/16/2024 12:12 AM CDT from Last 3 Months or Most Recently Relevant to Health Maintenance Results * (ABNORMAL) BASIC METABOLIC PANEL (CALCIUM TOTAL) (01/16/2024 12:12 AM CDT) BUN 68(H) 7 - 26 mg/dL 01/16/2024 12:47 AM [facility] Creatinine 1.49(H) 0.71 - 1.16 mg/dL 01/16/2024 12:47 AM [facility] Sodium 149(H) 136 - 145 mmol/L 01/16/2024 12:47 AM [facility] Potassium 4.5 3.5 - 4.5 mmol/L 01/16/2024 12:47 AM [facility] Chloride 116(H) 98 - 107 mmol/L 01/16/2024 12:47 AM [facility] CO2 25 22 - 29 mmol/L 01/16/2024 12:47 AM [facility] Glucose 136(H) 70 - 115 mg/dL 01/16/2024 12:47 AM [facility] Calcium 7.7(L) 8.4 - 10.2 mg/dL 01/16/2024 12:47 AM [facility] Anion Gap 8 6 - 16 01/16/2024 12:47 AM [facility] BUN/Creatinine Ratio 46(H) 7 - 23 01/16/2024 12:47 AM [facility] Osmolality Calculated 330(H) 275 - 295 mOsm/kg 01/16/2024 12:47 AM [facility] eGFR by CKD-EPI 49(L) >=90 mL/min/1.7 3 m2 01/16/2024 12:47 AM CDT [facility] Blood BLOOD SPECIMEN / Unknown Venipuncture / Unknown 01/16/2024 12:12 AM CDT 01/16/2024 12:18 AM CDT French Patel PA-C LAB - CHEMISTRY ORDERABLE S Final Result [facility] [address] [place] [address], [facility] [phone] from Last 3 Months or Most Recently Relevant to Health Maintenance Insurance [facility] Agency-Miscellaneous Address: [address] [place] [id number] MEDICARE [employer] MEDICARE [facility] THIRD DEMOCRAT LIABILITY MEDICARE [facility] Advance Directives * Full Code (Latest [...] 9:29 AM 12/18/2017 3:05 PM Care Teams Cloud Solutions Architect Relationship Specialty Start Date End Date Joseluis Chin III, MD [address] [place] [address] PCP - General 05/13/18
--- OUTSIDE RECORDS SUMMARY | 2025-05-10 17:26 | XMS_ITS | Clinical Summary ---
Author Organization [facility] Address [address] [place] [address] Care Team Providers Care Tiller Man Name Role Phone Giuseppe PHILLIPS MD, Joseluis Carney Primary Care Prov ider Source Comments [facility],non-owned Affiliates and Associated Physician Practices is amultiple site organization consisting of ambulatory clinics and hospital sitesin [place], [place], [place]. This disclosure is being madepursuant to the Care Everywhere program and may not contain all information available regarding this patient. Last updated 18.[facility] Allergies Active Allergy Reactions Criticality Noted Date [...] and heating? Not hard at all 12/29/2023 [facility] [place] of Occupat ional Health - Occupational Stress [...] place to sleep or slept in a nursing home (including now)? No 12/29/2023 Sex and Gender Information Value Date Recorded Sex Assigned at Not on file Legal Sex Male 1:41 PM CDT Gender Identity Not on file Sexual Orientation Not on file Last Filed Vital Signs Vital Sign Reading Time Taken Comments Blood Pressure 126/80 08/16/2024 2:08 PM MECHANICAL UNIT REPAIRER Pulse 61 08/16/2024 2:08 PM MECHANICAL UNIT REPAIRER Temperature 36.8 C (98.3 F) 08/16/2024 2:08 PM MECHANICAL UNIT REPAIRER Respiratory Rate 16 01/16/2024 9:00 PM CDT Oxygen Saturation 99% 08/16/2024 2:08 PM MECHANICAL UNIT REPAIRER Inhaled Oxygen Concentration 40% 01/16/2024 8 :28 PM CDT Weight 116 kg (255 lb 12.8 oz) 08/16/2024 2:08 P M MECHANICAL UNIT REPAIRER Height 180.3 cm (5' 11) 08/16/2024 2:08 PM MECHANICAL UNIT REPAIRER Body Mass Index 35.68 08/16/2024 2:08 PM MECHANICAL UNIT REPAIRER Plan of Treatment Health Maintenance Due Date [...] this topic Medical Devices Implanted Type Area Sales Performance Manager Device Identifier Shelf Expiration Date Model / Serial / Lot Nail 11mm 40cm Im Fem Tmx Versanail Implanted:Qty: 1 on 03/19/2018 by Ovidio Garcia MD at [facility] Right: Femur [employer] 09/10/2024 [id number] / / [id number] Plate Cntr 86mm Ss 2.7/3.5mm Scr 4 Hl Implanted:Qty: 1 on 03/19/2018 by Ovidio Garcia MD at [facility] Left: Ankle Synthes [employer] [id number] / / 4.5mm Solid Cortical Screw, Full Thread - 42mm Length Implanted:Qty: 1 on 03/19/2018 by Ovidio Garcia MD at [facility] Right: [employer] [id number] / / Description:4.5MM SOLID ASIM ICAL SCREW, FULL THREAD - 42MM LENGTH Screw 6.5mm 65mm Ft Fem Asim Prox Sld Implanted:Qty: 1 on 03/19/2018 by Ovidio Garcia MD at [facility] Right: Femur [employer] [id number] / / Cap End Unv Tib Im Nail Ti Strl Implanted:Qty: 1 on 03/19/2018 by Ovidio Garcia MD at [facility] Right: Femur [employer] 08/12/202300-015 / / [id number] Screw 2.7mm 2.1mm 14mm T8 Slf-Tap Lck Implanted:Qty: 2 on 03/19/2018 by Ovidio Garcia MD at [facility] Left: Ankle Synthes [employer] [id number] / / Screw 2.7mm 2.1mm 16mm T8 Slf-Tap Lck Implanted:Qty: 2 on 03/19/2018 by Ovidio Garcia MD at [facility] Left: Ankle [employer] 202.216 / / Screw 3.5mm 6mm 14mm Ft Asim Slf-Tap Sm Implanted:Qty: 1 on 03/19/2018 by Ovidio Garcia MD at [facility] Left: Ankle [employer] 204.814 / / Screw 3.5mm 6mm 16mm Ft Asim Slf-Tap Sm Implanted:Qty: 1 on 03/19/2018 by Ovidio Garcia MD at [facility] Left: Ankle Synthes [facility] 204.816 / / Screw 3.5mm 6mm 18mm Ft Asim Slf-Tap Sm Implanted:Qty: 1 on 03/19/2018 by Ovidio Garcia MD at [facility] Left: Ankle Synthes [facility] 204.818 / / Procedures Procedure Name Priority Date/Time Associated Diagnosis Comments BASIC METABOLIC PANEL (CALCIUM TOTAL) Timed 01/16/2024 12:12 AM CDT from Last 3 Months or Most Recently Relevant to Health Maintenance Results * (ABNORMAL) BASIC METABOLIC PANEL (CALCIUM TOTAL) (01/16/2024 12:12 AM CDT) BUN 68(H) 7 - 26 mg/dL 01/16/2024 12:47 AM [facility] Creatinine 1.49(H) 0.71 - 1.16 mg/dL 01/16/2024 12:47 AM [facility] Sodium 149(H) 136 - 145 mmol/L 01/16/2024 12:47 AM [facility] Potassium 4.5 3.5 - 4.5 mmol/L 01/16/2024 12:47 AM [facility] Chloride 116(H) 98 - 107 mmol/L 01/16/2024 12:47 AM [facility] CO2 25 22 - 29 mmol/L 01/16/2024 12:47 AM [facility] Glucose 136(H) 70 - 115 mg/dL 01/16/2024 12:47 AM [facility] Calcium 7.7(L) 8.4 - 10.2 mg/dL 01/16/2024 12:47 AM [facility] Anion Gap 8 6 - 16 01/16/2024 12:47 AM [facility] BUN/Creatinine Ratio 46(H) 7 - 23 01/16/2024 12:47 AM [facility] Osmolality Calculated 330(H) 275 - 295 mOsm/kg 01/16/2024 12:47 AM [facility] eGFR by CKD-EPI 49(L) >=90 mL/min/1.7 3 m2 01/16/2024 12:47 AM CDT [facility] Blood BLOOD SPECIMEN / Unknown Venipuncture / Unknown 01/16/2024 12:12 AM CDT 01/16/2024 12:18 AM CDT French Patel PA-C LAB - CHEMISTRY ORDERABLE S Final Result [facility] [address] [place] [address], [facility] [phone] from Last 3 Months or Most Recently Relevant to Health Maintenance Insurance [facility] MEDICARE [employer] MEDICARE [facility] THIRD DEMOCRAT LIABILITY MEDICARE [facility] Advance Directives * Full Code (Latest [...] 9:29 AM 12/18/2017 3:05 PM Care Teams Tiller Man Relationship Specialty Start Date End Date Joseluis Chin III, MD [address] [place] [address] PCP - General 05/13/18
--- OUTSIDE RECORDS SUMMARY | 2025-05-10 17:26 | XMS_ITS | Clinical Summary ---
Author Organization [facility] Address [address] [place] [address] Care Team Providers Care Permastone Installer Name Role Phone None, Provider MD Primary [...] on file Legal Sex Male 10:04 PM ARTISTS' BOOKING REPRESENTATIVE Gender Identity Not on file Sexual Orientation Not on file Last Filed Vital Signs Vital Sign Reading Time Taken Comments Blood Pressure 124/80 08/25/2021 7:30 PM ARTISTS' BOOKING REPRESENTATIVE Pulse 74 08/25/2021 7:30 PM ARTISTS' BOOKING REPRESENTATIVE Temperature 36.6 C (97.8 F) 08/25/2021 4:49 PM ARTISTS' BOOKING REPRESENTATIVE Respiratory Rate 18 08/25/2021 4:49 PM ARTISTS' BOOKING REPRESENTATIVE Oxygen Saturation 95% 08/25/2021 4:49 PM ARTISTS' BOOKING REPRESENTATIVE Inhaled Oxygen Concentration - - Weight 127 kg (280 lb) 08/25/2021 4:49 PM ARTISTS' BOOKING REPRESENTATIVE Height 180.3 cm (5' 11) 08/25/2021 4:49 PM ARTISTS' BOOKING REPRESENTATIVE Body Mass Index 39.05 08/25/2021 4:49 PM ARTISTS' BOOKING REPRESENTATIVE Plan of Treatment Health Maintenance Due Date [...] patient's age to complete this topic Insurance [facility] OFFICE OF [facility] Advance Directives * Full Code (Latest Code Status on File) Date Activated Date Inactivated Comments 05/01/2020 10:48 PM 05/04/2020 4:36 PM Care Teams Permastone Installer Relationship Specialty Start Date End Date None, Provider, PCP - General 05/01/20
--- OUTSIDE RECORDS SUMMARY | 2025-05-10 17:26 | XMS_ITS | Clinical Summary ---
Author Organization [facility] Address [address] [place] [address] Care Team Providers Care Motor Vehicle Representative Name Role Phone Joseluis Chin Primary Care Provider [phone] Allergies Active Allergy Reactions Criticality Noted Date [...] Tobacco: Unknown Tobacco Cessation:Counseling Given: Not Answered [facility] Utilities Answer Date Recorded In the past 12 months has e [employer], or water [employer] threatened to shut off services in your [...] How often do you attend chur or taoism services? Patient unable to answer 01/19/2024 Do you belong to any clubs o r organizations such as yarsani groups, unions, fraternal or athletic groups, or [...] and heating? Patient unable to answer 01/19/2024 [facility] of Occupat ional Health - Occupational Stress [...] any time in the past 12 m [facility], were you homeless or living in a correction (including now)? Patient unable to answer 01/19/2024 [...] have received informed consent. Yes Care Teams Motor Vehicle Representative Relationship Specialty Start Date End Date Joseluis Chin [address] [place] [id number] PCP - General Internal Medicine 01/19/24
--- NOTE | 2025-05-10 17:41 | WNDPHOTO ---
PHOTO ONLY - See Nursing Notes and/ or assessments for documentation.
--- NOTE | 2025-05-10 18:22 | PC.NURSE ---
Today at 1715 patient escorted to room 205 by ED staff via WC with by his side. Pt able to get up from WC and ambulate to be without difficulty. informs he uses a cane at home and she will bring it in tomorrow. Has urinal at bedside and pt informs he is able to to use it well without stand. [place], talkative and likes to joke with the staff. Cooperative with care. Call light in reach
[2025-05-10] MEDS: cefTRIAXone 2 GM in SODIUM CHLORIDE 0.9% IV 100 ML 200 ML IVPB (19:34)
[2025-05-10] MEDS: SODIUM CHLORIDE 0.45% 1,000 ML 75 ML IV CONT (19:34)
[2025-05-10] MEDS: APIXABAN 2.5 MG TABLET 5 MG PO (20:48)
[2025-05-10] MEDS: MELATONIN 3 MG TABLET PO (20:48)
[2025-05-11 05:41] LABS: Hematocrit 35.4 % (37.0-46.0); Hemoglobin 11.0 g/dL (12.4-15.3); Immature Granulocyte Percent A 0.5 % (0.0-0.0); Lymphocytes Absolute Auto 2.09 K/mm3 (1.10-4.50); Mean Corpuscular HGB Conc 31.1 g/dL (32-36); Mean Corpuscular Hemoglobin 28.5 pg (27.0-31.0); Mean Corpuscular Volume 91.7 fL (78.0-102.0); Nucleated Red Blood Cells Absolute Auto 0.00 K/mm3 (0.00-0.00); Nucleated Red Blood Cells Perc 0.0 % (0-0.0); Platelet Count Result 262 K/mm3 (150-420); Red Blood Count 3.86 M/mm3 (4.70-6.10); White Blood Count 7.3 K/mm3 (4.8-10.8)
[2025-05-11 05:57] LABS: Alanine Aminotransferase 14 U/L (6-50); Albumin Level 3.7 g/dL (3.5-5.1); Alkaline Phosphatase 78 U/L (38-126); Anion Gap 8 mmol/L (4-12); Aspartate Amino Transferase 19 U/L (17-59); Bilirubin,Total 0.6 mg/dL (0.2-1.3); Blood Urea Nitrogen 19 mg/dL (9-20); CRP 1.6 mg/dL (<1.0); Calcium 8.4 mg/dL (8.4-10.2); Carbon Dioxide 23 mmol/L (22-30); Chloride 110 mmol/L (98-107); Estimated CRCL calculation 64 ml/min; Estimated Glomerular Filt Rate > 60; Glucose 114 mg/dL (65-110); Osmolality Calculated 295 mOsm/kg (285-295); Potassium 4.1 mmol/L (3.4-5.0); Sodium 141 mmol/L (137-145); Total Protein 7.5 g/dL (6.3-8.2)
[2025-05-11 08:00] VITALS: BP 111/59; PULSE 64; RESP 16; TEMP 36.1; O2SAT 95
[2025-05-11] MEDS: FINASTERIDE 5 MG TABLET PO (09:26)
[2025-05-11] MEDS: TAMSULOSIN HCL 0.4 MG CAPSULE PO (09:26)
[2025-05-11] MEDS: ATORVASTATIN 10 MG TABLET 20 MG PO (09:26)
[2025-05-11] MEDS: APIXABAN 2.5 MG TABLET 5 MG PO ×2 (09:28→20:15)
[2025-05-11] MEDS: FERROUS SULFATE 325 MG TABLET PO (09:28)
[2025-05-11] MEDS: UMECLIDINIUM/VILANTEROL 62.5-25 MCG ELLIPTA 1 PUFF INHALATION (12:59)
[2025-05-11 13:01] VITALS: PULSE 56
[2025-05-11] MEDS: METOPROLOL SUCCINATE EXT REL 25 MG TABCR PO (13:01)
[2025-05-11] MEDS: MAGNESIUM OXIDE 400 MG TABLET PO (13:01)
[2025-05-11] MEDS: SERTRALINE HCL 50 MG TABLET 150 MG PO (13:01)
[2025-05-11] MEDS: FOLIC ACID 1 MG TABLET PO (13:02)
--- NOTE | 2025-05-11 13:18 | PM.IMHP ---
H&P: HPI History of Present Illness Date/Time: 05/11/25 13:18 Chief Complaint: right foot pain Narrative: Patient is a 75 year old male with PMH of HTN, HLD, BPH and acid reflux. Patient presented to the ER with complaints of right foot pain, edema and redness. Patient was seen here in the ER on 04/25 after he rolled his right ankle in a hole in the ground. He was diagnosed with a sprained ankle, fracture was ruled out. Patient reports after this injury his foot was swollen and he developed blisters on the top of his foot. These blisters opened and have been healing. In the ER the patient had a venous doppler of the RLE which was negative for an acute DVT. Patient's labs showed a creatinine 1.58, CRP 2.8. Patient was started on IV vancomycin and IV ceftriaxone was added. Patient was given IV fluids. Patient was admitted for further evaluation and treatment. Review of Systems Review of Systems: All systems reviewed & are unremarkable except as noted in HPI and below PMFSH Past Medical History Medical History Enlarged prostate Scalp injury Femur fracture Dementia High cholesterol Acid reflux Surgical History Surgical History History of ankle surgery History of hernia surgery Family History Family History Mother Diabetes mellitus Father Hypertension Enlarged prostate Social History Social History Smoking status: Never smoker Second hand tobacco smoke exposure: No Alcohol intake: never Drinks per week: 1 Substance use type: does not use Do You Feel Safe in your Home?: Yes Lack of Transportation: No Lack of Food: Never True Current Housing: I Have Housing Concerned About Future Housing: No Difficulty Paying Gas/Electric Bills: No Difficulty Paying for Meds: No Currently Unemployed: No Education: High School Diploma/GED Difficulty w/ Childcare or Family Care: No Spiritual care concerns: No Meds Home Medications and Allergies Home Medications ?Medication ?Instructions ?Recorded ?Confirmed ?Type tamsulosin 0.4 mg capsule 0.4 mg PO DAILY #90 caps 06/02/23 05/10/25 Rx finasteride 5 mg tablet 5 mg PO DAILY #90 tabs 06/03/23 05/10/25 Rx albuterol sulfate 90 mcg/actuation 1 puff inhalation Q4H PRN 05/10/25 05/10/25 History aerosol inhaler (Ventolin HFA) shortness of breath or wheezing amlodipine 10 mg tablet 10 mg PO DAILY 05/10/25 05/10/25 History apixaban 5 mg tablet 5 mg PO BID 05/10/25 05/10/25 History atorvastatin 20 mg tablet (Lipitor) 20 mg PO DAILY 05/10/25 05/10/25 History duloxetine 60 mg capsule,delayed 60 mg PO DAILY 05/10/25 05/10/25 History release (Cymbalta) ferrous sulfate 325 mg (65 mg 325 mg PO .MoWeFri@0900 05/10/25 05/11/25 History iron) tablet melatonin 3 mg capsule 9 mg PO QHS 05/10/25 05/11/25 History metoprolol succinate 25 mg 25 mg PO DAILY 05/10/25 05/11/25 History tablet,extended release 24 hr sertraline 50 mg tablet 150 mg PO DAILY 05/10/25 05/11/25 History folic acid 1 mg tablet 1 mg PO DAILY 05/11/25 05/11/25 History ipratropium 20 mcg-albuterol 100 1 puff inhalation QID 05/11/25 05/11/25 History mcg/actuation mist for inhalation (Combivent Respimat) lidocaine 5 % topical patch 1 patch topical DAILY 05/11/25 05/11/25 History magnesium oxide 400 mg PO DAILY 05/11/25 05/11/25 History omeprazole 40 mg capsule,delayed 40 mg PO QPM 05/11/25 05/11/25 History release Allergies Allergy/AdvReac Type Severity Reaction Status Date / Time No Known Allergies Allergy Mild Verified 05/10/25 17:50 Vital Signs Vital Signs - 24 hr 05/10/25 14:00 05/10/25 14:12 05/10/25 14:15 Temperature 98.0 F Pulse Rate 64 Respiratory Rate 16 Blood Pressure 127/79 Pulse Oximetry 97 98 98 Oxygen Delivery Room Air 05/10/25 14:16 05/10/25 14:34 05/10/25 14:45 Temperature Pulse Rate Respiratory Rate Blood Pressure 109/64 Pulse Oximetry 96 96 96 Oxygen Delivery 05/10/25 15:05 05/10/25 15:15 05/10/25 15:16 Temperature Pulse Rate Respiratory Rate Blood Pressure 118/68 Pulse Oximetry 99 98 96 Oxygen Delivery 05/10/25 15:30 05/10/25 15:31 05/10/25 15:45 Temperature Pulse Rate Respiratory Rate Blood Pressure 134/76 Pulse Oximetry 97 98 96 Oxygen Delivery 05/10/25 15:46 05/10/25 16:00 05/10/25 16:01 Temperature Pulse Rate Respiratory Rate Blood Pressure 135/81 138/86 Pulse Oximetry 98 94 98 Oxygen Delivery 05/10/25 16:15 05/10/25 16:16 05/10/25 16:30 Temperature Pulse Rate Respiratory Rate Blood Pressure 133/78 Pulse Oximetry 96 94 97 Oxygen Delivery 05/10/25 16:32 05/10/25 16:45 05/10/25 17:20 Temperature 97.0 F L Pulse Rate 57 L Respiratory Rate 18 Blood Pressure 128/62 133/75 Pulse Oximetry 98 99 98 Oxygen Delivery Room Air 05/10/25 23:51 05/11/25 08:00 05/11/25 13:01 Temperature 97.5 F L 97.0 F L Pulse Rate 66 64 56 L Respiratory Rate 19 16 Blood Pressure 115/73 111/59 L Pulse Oximetry 97 95 Oxygen Delivery Room Air Room Air Exam Const: General: comfortable and no acute distress HENMT: Face/Nose/Sinus: Normal nares present Mouth: Yes moist mucous membranes Eyes: General: appearance normal, both eyes and all related structures Sclera: sclerae normal Neck: Neck: supple Resp: Effort & Inspection: normal respiratory effort Auscultation: clear to auscultation bilaterally Cardio: Rate: regular rate Rhythm: regular rhythm GI: GI Palp: Yes Soft to palpation Auscultation: normal bowel sounds Skin: Other: scabbed wound to top of right foot with surrounding erythema, warmth and edema Neuro: Speech: normal speech Motor exam (neuro): 5/5 motor strength present throughout Sensory Exam: normal sensation Extrem: Other: RLE 1+ edema Psych: Mental Status: mental status grossly normal Affect: normal affect H&P: Results Labs Labs: Short CBC 05/10/25 05/11/25 Range/Units 14:33 05:25 WBC 6.4 7.3 (4.8-10.8) K/mm3 Hgb 12.1 L 11.0 L (12.4-15.3) g/dL Hct 39.4 35.4 L (37.0-46.0) % Plt Count 220 262 (150-420) K/mm3 BMP 05/10/25 05/11/25 05/11/25 14:33 05:25 05:25 Sodium 143 141 Potassium 4.3 4.1 Chloride 106 110 H Carbon Dioxide 28 23 BUN 19 19 Creatinine 1.58 H Cancelled 1.13 Glucose 140 H 114 H Calcium 9.1 8.4 Liver Function 05/10/25 05/11/25 Range/Units 14:33 05:25 Total Bilirubin 0.7 0.6 (0.2-1.3) mg/dL AST 21 19 (17-59) U/L ALT 17 14 (6-50) U/L Alkaline Phosphatase 86 78 (38-126) U/L Albumin 4.2 3.7 (3.5-5.1) g/dL Imaging Venous US: Radiologist's impression: Ordering Physician: Bren Kaplan MD Date of Service: 05/10/25 Procedure(s): US venous doppler LE RT Accession Number(s): [id number] cc: Vj Miller DO; Bren Kaplan MD~ RIGHT LOWER EXTREMITY VENOUS DUPLEX Clinical History: Right calf muscle pain COMPARISON: None TECHNIQUE: Grayscale, color, duplex/spectral Doppler sonography right leg FINDINGS: Right leg common femoral, femoral, popliteal, and calf veins compressible and color Doppler patent. Normal augmentation with distal compression. No internal echoes. IMPRESSION: 1. No right leg DVT. Reviewed, dictated and finalized at location R. Assessment and Plan Assessment and plan (1) Cellulitis: Code(s): L03.90 - Cellulitis, unspecified Status: Acute Assessment and Plan: Patient has a wound to upper right foot with surrounding erythema, warmth and edema s/p RLE venous doppler - negative for DVT IV vancomycin IV ceftriaxone some improvement in erythema noted on today's exam, improvement in edema per patient continue IV antibiotics with plan to switch to PO tomorrow and discharge home keep scabbed wound clean and dry, avoid wearing shoes and socks until healed (2) Wound of right foot: Code(s): S91.301A - Unspecified open wound, right foot, initial encounter Status: Acute Assessment and Plan: see above (3) FANNY (acute kidney injury): Code(s): N17.9 - Acute kidney failure, unspecified Status: Acute Assessment and Plan: on admission cr 1.58 improved to 1.13 today s/p IV fluids AM labs (4) Essential hypertension: Code(s): I10 - Essential (primary) hypertension Status: Acute Assessment and Plan: monitor BP and adjust meds as indicated continue amlodipine continue metoprolol (5) HLD (hyperlipidemia): Code(s): E78.5 - Hyperlipidemia, unspecified Status: Acute Assessment and Plan: continue statin Quality VTE Prophylaxis VTE prophylaxis: pharmacologic ordered
[2025-05-11] MEDS: VANCOMYCIN 1,500 MG/NS 500 ML 1,500 MG/500 ML BAG 250 MG IVPB (14:10)
[2025-05-11 16:00] VITALS: BP 138/58; PULSE 54; RESP 16; TEMP 36.2; O2SAT 96
--- NOTE | 2025-05-11 16:10 | PHAR ---
05/11/25 09:00: spoke with pharmacist at [facility] ([phone]) to confirm home medications on patient. tls
[2025-05-11] MEDS: PANTOPRAZOLE 40 MG TABLET PO (17:12)
[2025-05-11] MEDS: cefTRIAXone 2 GM in SODIUM CHLORIDE 0.9% IV 100 ML 200 ML IVPB (18:46)
[2025-05-11] MEDS: MELATONIN 3 MG TABLET 9 MG PO (20:14)
[2025-05-12] VITALS: BP 136/72; PULSE 56; RESP 20; TEMP 36.4; O2SAT 94
[2025-05-12 05:36] LABS: Hematocrit 36.5 % (37.0-46.0); Hemoglobin 11.3 g/dL (12.4-15.3); Immature Granulocyte Percent A 0.6 % (0.0-0.0); Lymphocytes Absolute Auto 2.06 K/mm3 (1.10-4.50); Mean Corpuscular HGB Conc 31.0 g/dL (32-36); Mean Corpuscular Hemoglobin 28.3 pg (27.0-31.0); Mean Corpuscular Volume 91.5 fL (78.0-102.0); Nucleated Red Blood Cells Absolute Auto 0.00 K/mm3 (0.00-0.00); Nucleated Red Blood Cells Perc 0.0 % (0-0.0); Platelet Count Result 232 K/mm3 (150-420); Red Blood Count 3.99 M/mm3 (4.70-6.10); White Blood Count 6.7 K/mm3 (4.8-10.8)
[2025-05-12 05:50] LABS: Alanine Aminotransferase 15 U/L (6-50); Albumin Level 3.5 g/dL (3.5-5.1); Alkaline Phosphatase 84 U/L (38-126); Anion Gap 7 mmol/L (4-12); Aspartate Amino Transferase 17 U/L (17-59); Bilirubin,Total 0.4 mg/dL (0.2-1.3); Blood Urea Nitrogen 17 mg/dL (9-20); Calcium 8.7 mg/dL (8.4-10.2); Carbon Dioxide 27 mmol/L (22-30); Chloride 108 mmol/L (98-107); Estimated CRCL calculation 65 ml/min; Estimated Glomerular Filt Rate > 60; Glucose 105 mg/dL (65-110); Osmolality Calculated 295 mOsm/kg (285-295); Potassium 4.0 mmol/L (3.4-5.0); Sodium 142 mmol/L (137-145); Total Protein 6.3 g/dL (6.3-8.2)
[2025-05-12 08:00] VITALS: BP 144/82; PULSE 59; RESP 18; TEMP 36.8; O2SAT 97
[2025-05-12] MEDS: UMECLIDINIUM/VILANTEROL 62.5-25 MCG ELLIPTA 1 PUFF INHALATION (08:51)
[2025-05-12] MEDS: PANTOPRAZOLE 40 MG TABLET PO (08:52)
[2025-05-12] MEDS: ATORVASTATIN 10 MG TABLET 20 MG PO (08:52)
[2025-05-12] MEDS: MAGNESIUM OXIDE 400 MG TABLET PO (08:53)
[2025-05-12] MEDS: SERTRALINE HCL 50 MG TABLET 150 MG PO (08:53)
[2025-05-12] MEDS: TAMSULOSIN HCL 0.4 MG CAPSULE PO (08:54)
[2025-05-12] MEDS: APIXABAN 2.5 MG TABLET 5 MG PO (08:54)
[2025-05-12 08:55] VITALS: PULSE 59
[2025-05-12] MEDS: LIDOCAINE 5% PATCH 1 PATCH TRANSDERM (08:55)
[2025-05-12] MEDS: FOLIC ACID 1 MG TABLET PO (08:55)
[2025-05-12] MEDS: FINASTERIDE 5 MG TABLET PO (08:55)
[2025-05-12] MEDS: METOPROLOL SUCCINATE EXT REL 25 MG TABCR PO (08:55)
--- NOTE | 2025-05-12 13:31 | P.DS_ITS ---
DS: Admitting Diagnosis Discharge Date 05/12/2025 Admitting Diagnosis Cellulitis Wound of right foot FANNY Essential hypertension Hyperlipidemia DS: Discharge Diagnosis Discharge Diagnosis (1) Cellulitis: Code(s): L03.90 - Cellulitis, unspecified Status: Acute Assessment and Plan: Patient has a wound to upper right foot with surrounding erythema, warmth and edema s/p RLE venous doppler - negative for DVT IV vancomycin IV ceftriaxone discharge home on PO cefdinir x 8 days and PO doxycycline x 8 days keep scabbed wound clean and dry, avoid wearing shoes and socks until healed patient to follow up with his PCP within 1-2 weeks of discharge (2) Wound of right foot: Code(s): S91.301A - Unspecified open wound, right foot, initial encounter Status: Acute Assessment and Plan: see above (3) FANNY (acute kidney injury): Code(s): N17.9 - Acute kidney failure, unspecified Status: Acute Assessment and Plan: on admission cr 1.58 improved to 1.13 today s/p IV fluids resolved (4) Essential hypertension: Code(s): I10 - Essential (primary) hypertension Status: Acute Assessment and Plan: monitor BP and adjust meds as indicated continue amlodipine continue metoprolol (5) HLD (hyperlipidemia): Code(s): E78.5 - Hyperlipidemia, unspecified Status: Acute Assessment and Plan: continue statin DS: Summary Hospital Course Reason for hospitalization: foot cellulitis Hospital Course: The patient is a 75-year-old male with a history of hypertension, hyperlipidemia, benign prostatic hyperplasia, acid reflux, and dementia who presented with right foot pain, swelling, and redness following a right ankle injury two weeks prior. He developed blisters over the dorsum of the right foot, which subsequently opened and began to heal. On admission, exam revealed a scabbed wound with surrounding erythema, warmth, and edema. Venous Doppler of the right lower extremity was negative for DVT. Laboratory studies were notable for acute kidney injury, which improved with IV fluids. The patient was started on IV vancomycin and ceftriaxone for presumed cellulitis, with improvement in erythema and edema noted during hospitalization. He remained afebrile and hemodynamically stable, and his renal function normalized. The wound was kept clean and dry, and the patient was advised to avoid wearing shoes and socks until fully healed. He was transitioned to oral cefdinir and doxycycline to complete an 8-day course of antibiotics and discharged home in stable condition, with instructions to follow up with his primary care provider within 1?2 weeks. Time Spent with Patient Time attestation: Total time spent providing and/or coordinating discharge services: 35 Minutes Exam Const: General: comfortable and no acute distress HENMT: Face/Nose/Sinus: Normal nares present Mouth: Yes moist mucous membranes Eyes: General: appearance normal, both eyes and all related structures Sclera: sclerae normal Neck: Neck: supple Resp: Effort & Inspection: normal respiratory effort Auscultation: clear to auscultation bilaterally Cardio: Rate: regular rate Rhythm: regular rhythm GI: Auscultation: normal bowel sounds Skin: Other: scabbed wound to top of right foot with minimal erythema, no warmth Neuro: Speech: normal speech Motor exam (neuro): 5/5 motor strength present throughout Sensory Exam: normal sensation Extrem: Other: RLE 1+ edema Psych: Mental Status: mental status grossly normal Affect: normal affect DS: Data Data Completed and Pending Labs on day of discharge: Labs from last 24 hours 05/12/25 05:23 WBC 6.7 RBC 3.99 L Hgb 11.3 L Hct 36.5 L MCV 91.5 MCH 28.3 MCHC 31.0 L RDW 14.2 Plt Count 232 MPV 9.2 Immature Gran % (Auto) 0.6 H Neut % (Auto) 53.2 Lymph % (Auto) 30.7 [place] % (Auto) 9.2 Eos % (Auto) 5.7 Baso % (Auto) 0.6 Lymph # (Auto) 2.06 [place] # (Auto) 0.62 Eos # (Auto) 0.38 Baso # (Auto) 0.04 Abs Immat Gran (auto) 0.04 H Absolute Neuts (auto) 3.58 Absolute Nucleated RBC 0.00 Nucleated RBC % 0.0 Sodium 142 Potassium 4.0 Chloride 108 H Carbon Dioxide 27 Anion Gap 7 BUN 17 Creatinine 1.11 Estim Creat Clear Calc 65 Estimated GFR > 60 Glucose 105 Calculated Osmolality 295 Calcium 8.7 Total Bilirubin 0.4 AST 17 ALT 15 Alkaline Phosphatase 84 Total Protein 6.3 Albumin 3.5 Preliminary micro results at discharge 05/10/25 14:32 Blood Culture - Preliminary Blood 05/10/25 14:32 Blood Culture - Preliminary Blood Discharge Plan Discharge Attending physician on discharge: Evangelist Guthrie Consulting providers: Arin Kauffman; Emery Petty Discharging Clinician: Arin Kauffman Patient Disposition: Home Activity: as tolerated Diet: as tolerated Wound Care Instructions: other - see discharge instructions Discharge Instructions: Please keep the wound on your right foot clean and dry. Wash with warm soapy water and pat dry two times per day. Keep the wound open to air as much as possible, only wear shoes when necessary. Elevate your right leg often to help r educe swelling. Please complete your antibiotics even if you are feeling better. Call your PCP or come to the ER if you experience a fever greater than 100.4, worsening of the redness or pain in the right foot. Patient Instructions: Antibiotic Form, Doxycycline (By mouth), Cefdinir (By mouth), Cellulitis (GEN), Fall Prevention for Older Adults (DC) Patient Language: Bel[place]ian Stand Alone Forms: General Discharge Information Follow-up/Referrals: Vj Miller DO [Primary Care Provider, [facility]] Referral Note: Have your call for an appointment to be seen within 1-2 weeks of discharge to ensure the wound on the right foot has completely healed and has no remaining signs of infection. Patient prefers to make own appt. Discharge Medications: New cefdinir 300 mg capsule 300 mg PO Q12H Qty: 16 0RF Rx Instructions: first dose 10/30 evening doxycycline monohydrate 100 mg capsule 100 mg PO BID Qty: 16 0RF Rx Instructions: first dose 10/30 evening Continued duloxetine [Cymbalta] 60 mg capsule,delayed release(DR/EC) 60 mg PO DAILY Combivent Respimat 20-100 mcg/actuation mist 1 puff inhalation QID folic acid 1 mg tablet 1 mg PO DAILY lidocaine 5 % adhesive patch,medicated 1 patch topical DAILY Rx Instructions: apply to back for 12 hrs on, 12 hours off magnesium oxide 400 mg magnesium capsule 400 mg PO DAILY omeprazole 40 mg capsule,delayed release(DR/EC) 40 mg PO QPM tamsulosin 0.4 mg capsule 0.4 mg PO DAILY Qty: 90 0RF atorvastatin [Lipitor] 20 mg tablet 20 mg PO DAILY amlodipine 10 mg tablet 10 mg PO DAILY ferrous sulfate 325 mg (65 mg iron) tablet 325 mg PO .[id number] Patient Comments: Friday , Friday and Friday metoprolol succinate 25 mg tablet extended release 24 hr 25 mg PO DAILY albuterol sulfate [Ventolin HFA] 90 mcg/actuation HFA aerosol inhaler 1 puff inhalation Q4H PRN (Reason: shortness of breath or wheezing) sertraline 50 mg tablet 150 mg PO DAILY apixaban 5 mg tablet 5 mg PO BID melatonin 3 mg capsule 9 mg PO QHS finasteride 5 mg tablet 5 mg PO DAILY Qty: 90 0RF Date of admission: 05/10/25 16:38 Primary Care Provider: Vj Miller Admitting Provider: Evangelist Guthrie Attending physician on admission: Evangelist Guthrie Condition: Stable Quality VTE Prophylaxis VTE prophylaxis: pharmacologic ordered
--- NOTE | 2025-05-12 14:07 | PC.NURSE ---
Discharge instructions given to patient and patient voices understanding. IV site discontinued in anticipation of discharge.
--- NOTE | 2025-05-12 15:10 | PC.NURSE ---
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 Personal belongings sent home with patient. Patient left unit in w/c accompanied by nurse and patient's family. Patient left hospital grounds in privately owned vehicle.
--- NOTE | 2025-05-13 09:18 | PC.NURSE ---
Discharge call back complete, spoke with , doing well, no questions regarding meds or instructions
== END 2025-05-12 15:10 | disposition home or self-care (01) ==
LOC: CHSED 16:37 → CHS2ND 16:53
PROVIDERS: Nurse Practitioner Adult Health; Admitting Provider Internal Medicine; Emergency Provider Emergency Medicine; PCP Family Medicine; Visit Provider Internal Medicine
DX: L03.90 Cellulitis, unspecified (principal); S91.301A Unspecified open wound, right foot, initial encounter; N17.9 Acute kidney failure, unspecified; F03.90 Unspecified dementia, unspecified severity, without behavioral disturbance, psychotic disturbance, mood disturbance, and anxiety; N40.0 Benign prostatic hyperplasia without lower urinary tract symptoms; I10 Essential (primary) hypertension; E78.5 Hyperlipidemia, unspecified; K21.9 Gastro-esophageal reflux disease without esophagitis; Z83.3 Family history of diabetes mellitus
CPT/HCPCS: 36415; 80053; 83605; 85025; 85610; 85730; 86140; 87040; 93971; 96361; 96365; 96366; 96367; 96375; 97161; 97165; 97530; 97535; 99285; A9270; G0378; J0696; J3373